=== PATIENT | female | born 1975 | race Caucasian/White ===

== ENCOUNTER → 2016-09-03 | Outpatient (CLI) | payer BC | END | disposition home or self-care (01) | LOC: C.PAPS 12:48 | PROVIDERS: ATTEND Obstetrics & Gynecology | DX: Z01.419 Encounter for gynecological examination (general) (routine) without abnormal findings (principal) ==

== ENCOUNTER → 2017-07-03 | Outpatient (CLI) | payer OTHER ==
--- NOTE | 2017-07-03 09:28 | DIAGNOSTIC IMAGING REPORT ---
L FOOT MIN 3 VIEWS ROUTINE CLINICAL HISTORY: LEFT FOOT PAIN COMPARISON: None. DISCUSSION: The bony mineralization appears normal. No fractures or dislocations are visualized. There are no erosive or destructive changes. IMPRESSION: No significant bony abnormalities identified Electronically signed by: Chris Moss M.D. 07/03/2017 9:26 AM Dictated Date/Time: 07/03/2017 9:26 AM
== END | disposition home or self-care (01) ==
LOC: C.RAD1850 09:19
PROVIDERS: ATTEND Family Medicine
DX: M79.672 Pain in left foot (principal)

== ENCOUNTER 2024-11-03 12:31 | Observation (INO) ==
--- NOTE | 2024-11-03 13:18 | XRay Report ---
XR chest 1V not portable CLINICAL HISTORY: Chest pain, nonspecific COMPARISON STUDY: 02/09/2024 FINDINGS: Heart size and pulmonary vasculature are normal. No consolidation or pleural effusion. No p neumothorax. IMPRESSION: No acute findings. ACT 112: Negative or not required by law. Electronically signed by: Brody De León M.D. 11/03/2024 1:17 PM
[2024-11-03 13:19] LABS: Anion Gap 13 (3-11); Bilirubin,Total 0.3 mg/dl (0.2-1.0); Calcium 9.6 mg/dl (8.6-10.3); Carbon Dioxide 23 mmol/L (21-32); Chloride 103 mmol/L (98-107); Potassium 3.5 mmol/L (3.5-5.1); Sodium 139 mmol/L (136-145)
[2024-11-03 13:25] LABS: Alanine Aminotransferase 13 U/L (7-52); Albumin Globulin Ratio 1.7 (0.9-2); Alkaline Phosphatase 46 U/L (34-104); Blood Urea Nitrogen 18 mg/dl (6-23); Creatinine Clr Calc Pharmacy 67.8 ml/min; Globulin 2.7 gm/dl (2.5-4.0); Glucose 95 mg/dl (70-99(Fasting)); Total Protein 7.2 gm/dl (6.0-8.3)
--- NOTE | 2024-11-03 14:12 | Emergency Department Note ---
History of Present Illness General Chief complaint: Chest Pain Stated complaint: CHEST PAIN Time Seen by Provider: 11/03/24 14:12 History of Present Illness Maximum Pain Intensity: 7 This is a 49-year-old female that presents to the emergency department via private vehicle with complaints of "chest pain, nausea". The patient states that yesterday she began with central chest pain that was present when she ate or drank any food/fluid. However today notes it is worse even at rest. She rates the pain as a 5 or 6/10. This is in the central chest area. She describes as a pressure or heaviness. She notes associated nausea but no vomiting. No cough. No fevers or chills. No history of VA or PE. The patient does not history of aneurysm in the brain about 5 years ago but that was repaired. Current pain 7/10. No headache at this time. The pain in the chest does not radiate to the back or into the arms or neck. Home Medications Medication Instructions Recorded Confirmed Type valsartan 160 1 tab PO DAILY 05/14/24 11/03/24 History mg-hydrochlorothiazide 12.5 mg tablet loratadine 10 mg tablet (Claritin) 10 mg PO DAILY PRN Allergy Symptoms 11/03/24 11/03/24 History Allergies Allergy/AdvReac Type Severity Reaction Status Date / Time Penicillins Allergy Mild AMOXICILLIN Verified 11/03/24 15:54 - RASH sulfamethoxazole Allergy Mild Unknown Verified 11/03/24 15:54 Sulfa (Sulfonamide AdvReac Intermediate NAUSEA Verified 11/03/24 15:54 Antibiotics) Past Med/Surg History Problem List (Updated 11/03/24 @ 18:14 by Faisal March PA-C) Atypical chest pain (Acute) Perimenopause HTN (hypertension) (Chronic) Medical History HTN (hypertension) Brain aneurysm Surgical History H/O shoulder surgery mass removed. Hx of tonsillectomy H/O oral surgery H/O brain surgery Family History (Updated 05/14/24 @ 09:30 by Purnima Allen MD, FACOG) Aunt Breast cancer maternal Mother Hypertension Diabetes Stroke Heart disease Kidney disease Father Congenital heart disease Denies family history of Ovarian cancer Colorectal cancer Social History Smoking Status: Never smoker Do You Dip or Chew Tobacco: No; Preferred Language: Danish Feels Safe at Home: Yes Review of Systems A total of 10 systems reviewed and were otherwise negative Physical Exam Vital Signs Vital Signs - 24 hr 11/03/24 12:33 11/03/24 14:25 11/03/24 15:09 Temperature 36.4 C L Temperature Source Temporal Artery Scan Pulse Rate 87 64 Pulse Rate [Apical] Respiratory Rate 18 Blood Pressure 155/94 H Blood Pressure Mean 114 Pulse Oximetry 100 100 Oxygen Delivery Method Room Air Room Air Sepsis New/Unexplained Change in Mental Status No Sepsis Action Taken by Nursing No Action Required 11/03/24 15:09 11/03/24 15:10 Temperature Temperature Source Pulse Rate Pulse Rate [Apical] 62 Respiratory Rate 15 Blood Pressure Blood Pressure Mean Pulse Oximetry 100 100 Oxygen Delivery Method Room Air Room Air Sepsis New/Unexplained Change in Mental Status Sepsis Action Taken by Nursing VITAL SIGNS - Vital signs and nursing notes were reviewed. Stable and afebrile. GENERAL -49-year-old female appearing her stated age who is in no acute distress. Communicates well with provider and answers questions appropriately. SKIN - Without rashes. No meningeal or petechial rash. HEAD - NC/AT. EYES - PERRL with EOMI bilaterally. Sclera anicteric. EARS - No deformities of external structures noted on gross examination bilaterally. NOSE - Midline and without cyanosis. No epistaxis or purulent drainage noted. MOUTH/OROPHARYNX - Without perioral cyanosis. NECK - Neck with FROM. No nuchal rigidity. LUNGS - CTA CARDIAC - RRR ABDOMEN - Abdominal contour normal without pulsations or visible masses. BS normoactive all four quadrants. No tenderness, palpable masses, hepatosplenomegaly, or ascites noted. EXTREMITIES - No clubbing or peripheral cyanosis. +5/5 strength noted in UE/LE bilaterally. NEUROLOGIC - Cranial nerves II through XII grossly intact. PSYCH -alert, oriented and pleasant on exam Course Administered Medications Discontinued Medications Al Hydrox/Mg Hydrox/Simethicone (Aluminum/Magnesium Susp 30 Ml Udc) 15 ml PO NOW STA Stop: 11/03/24 14:29 Last Admin: 11/03/24 15:10 Dose: 15 ml Documented By: ML Famotidine (Pepcid 20mg Iv Push) 20 mg in 5 mls @ 2.5 mls/min IV NOW STA Stop: 11/03/24 14:29 Last Admin: 11/03/24 15:10 Dose: 2.5 mls/min Documented By: SHIVA Ioversol (Optiray 320 125ml) 115 ml IV ONCE ONE Stop: 11/03/24 14:52 Last Admin: 11/03/24 14:51 Dose: 115 ml Documented By: DAYANA Morphine Sulfate (Morphine Sulfate 2 Mg/Ml Carp) 2 mg IV NOW STA Stop: 11/03/24 15:52 Last Admin: 11/03/24 15:57 Dose: 2 mg Documented By: TRENT Ondansetron HCl (Ondansetron Inj 2 Mg/Ml 2 Ml Vial) 4 mg IV NOW STA Stop: 11/03/24 15:52 Last Admin: 11/03/24 15:57 Dose: 4 mg Documented By: TRENT Medical Decision Making Laboratory Data 11/03/24 14:35 11/03/24 12:53 Lab Results 11/03/24 11/03/24 11/03/24 Range/Units 12:53 14:35 14:39 WBC 17.66 H (4.8-10.8) K/ul RBC 4.54 (4.20-5.40) M/uL Hgb 13.8 (12.0-16.0) g/dl Hct 40.5 (37.0-47.0) % MCV 89.2 (80.0-100.0) fL MCH 30.4 (25.0-34.0) pg MCHC 34.1 (32.0-36.0) g/dL RDW Std Deviation 42.2 (36.4-46.3) fL RDW Coeff of Hiren 13.0 (11.5-14.5) % Plt Count 426 H (130-400) K/uL MPV 9.9 (9.4-12.4) fL Immature Gran % (Auto) 0.5 % Neut % (Auto) 83.5 % Lymph % (Auto) 9.6 % Alcorn % (Auto) 6.0 % Eos % (Auto) 0.1 % Baso % (Auto) 0.3 % Neut # (Auto) 14.75 H (1.40-6.50) K/uL Lymph # (Auto) 1.69 (1.20-3.40) K/uL Alcorn # (Auto) 1.06 H (0.11-0.59) K/uL Eos # (Auto) 0.02 (0.00-0.50) K/uL Baso # (Auto) 0.06 (0.00-0.20) K/uL Immature Gran # (Auto) 0.08 (0.01-0.20) K/uL PT 11.0 (9.0-12.0) Seconds INR 1.0 (0.9-1.1) APTT 31 (21-31) Seconds PTT Ratio 1.2 Sodium 139 (136-145) mmol/L Potassium 3.5 (3.5-5.1) mmol/L Chloride 103 (98-107) mmol/L Carbon Dioxide 23 (21-32) mmol/L Anion Gap 13 H (3-11) BUN 18 (6-23) mg/dl Creatinine 0.95 (0.6-1.2) mg/dl Est Cr Clr Drug Dosing 67.8 ml/min eGFR 72.99 BUN/Creatinine Ratio 18.9 (10-20) Glucose 95 (70-99(Fasting)) mg/dl Calcium 9.6 (8.6-10.3) mg/dl Total Bilirubin 0.3 (0.2-1.0) mg/dl AST 16 (13-39) U/L ALT 13 (7-52) U/L Alkaline Phosphatase 46 (34-104) U/L Troponin I High Sens < 2.3 2.6 (0-14) pg/ml Total Protein 7.2 (6.0-8.3) gm/dl Albumin 4.5 (3.4-5.0) gm/dl Globulin 2.7 (2.5-4.0) gm/dl Albumin/Globulin Ratio 1.7 (0.9-2) Procalcitonin < 0.02 (0-0.5) ng/ml Lyme Disease Screen Negative (Negative) Imaging Data Radiologist's Impression: Chest X-Ray 11/03/24 12:37 XR chest 1V not portable CLINICAL HISTORY: Chest pain, nonspecific COMPARISON STUDY: 02/09/2024 FINDINGS: Heart size and pulmonary vasculature are normal. No consolidation or pleural effusion. No pneumothorax. IMPRESSION: No acute findings. ACT 112: Negative or not required by law. Electronically signed by: Brody De León M.D. 11/03/2024 1:17 PM Chest CTA 11/03/24 14:28 CT angio chest PE protocol CT DOSE: 437.52 mGy.cm HISTORY: 49 years-old Female with central chest pain/pressure. Acute chest pain TECHNIQUE: Multiple CTA images of the chest were obtained after the intravenous administration of 115 ml Optiray. Coronal and sagittal MIPS were obtained from the axial data set and were submitted for review. All measurements were obtained according to NASCET criteria. A dose lowering technique was utilized adhering to the principles of ALARA. COMPARISON: Chest radiograph of same day FINDINGS: CTA: The heart is normal in size. Trace pericardial effusion. Mild coronary artery calcifications. No thoracic aortic aneurysm or dissection. No pulmonary emboli are seen. CT CHEST: No dominant thyroid nodule is seen. No pathologically adenopathy by CT size criteria. Trace pleural effusions. No pneumothorax, airspace consolidation or pulmonary edema. Tiny area of subsegmental subpleural tree-in-bud nodules of the left lower lobe on image 49 series 4 are likely benign. 2 cm thin-walled subpleural cyst of the anterior segment right upper lobe. 4 mm fissural nodule in the right middle lobe on image 58, likely a benign lymph node. A calcified granuloma of left lower lobe. No acute upper abdominal abnormality identified. There are a few nonspecific subcentimeter hypodensities of the liver measuring up to 9 mm which are incompletely characterized. The osseous structures appear intact. IMPRESSION: 1. No pulmonary emboli. 2. Trace pleural and pericardial effusions. 3. No airspace consolidation typical for pneumonia. ACT 112: Negative or not required by law. The above report was generated using voice recognition software. It may contain grammatical, syntax or spelling errors. Electronically signed by: Bobo Thorne M.D. 11/03/2024 3:19 PM [facility] Narrative Patient was seen and evaluated as above in room B12a. Review was performed of triage nursing notes and vital signs. I did review pertinent previous visits and patient history. After obtaining a thorough history and physical examination the above work up was performed. Patient presents to us today for evaluation of chest pressure/pain. She does appear to be in pain on examination. Vital signs stable. EKG per my interpretation reveals normal sinus rhythm at a rate of 80 bpm. QTc 442. QRS 78. No ST elevation. GI cocktail was ordered as well as Pepcid. No change in symptoms. White count is elevated at 17.66. No anemia. Coags normal. No evidence of kidney or liver failure. Troponin x 2 negative. Chest x-ray as above and was essentially negative. CTA was then performed to further assess the patient's chest pressure/heaviness that has been progressively worsening. No PE. Trace pleural and pericardial effusions. No pneumonia.. I did order IV analgesia and antiemetics with the patient noting ongoing symptoms. Procalcitonin and Lyme testing negative. The patient has had no improvement of symptoms with a GI cocktail or IV Pepcid. Although this does not exclude potential for GI etiology, noting the continued chest heaviness/pressure at this time I do believe that further evaluation and management in inpatient setting is warranted. Case discussed with the hospitalist service. Please refer to further documentation regarding her stay. GCS: 15 In the evaluation and treatment of this patient the following differential diagnoses were entertained: VA, PE, dissection, pericarditis, costochondritis, among others. Impression & Plan Atypical chest pain Discharge Plan Visit Data Chief Complaint: Chest Pain Stated Complaint: CHEST PAIN ED Provider: Venkatesh Borrego ED Midlevel Provider: Faisal March Discharge Problem: Atypical chest pain Patient Disposition: Admitted As Inpatient Condition: Good Forms Stand Alone Forms: [facility] Prescriptions Prescriptions: No Action valsartan-hydrochlorothiazide 160-12.5 mg tablet 1 tab PO DAILY loratadine [Claritin] 10 mg Tablet 10 mg PO DAILY PRN (Reason: Allergy Symptoms) Referrals Referrals: Michel Radford MD [Resident] -
[2024-11-03] MEDS: OPTIRAY 320 125ml IV ONE (14:51)
[2024-11-03 14:56] LABS: Hematocrit (blood only) 40.5 % (37.0-47.0); Hemoglobin 13.8 g/dl (12.0-16.0); Immature Granulocytes # (auto) 0.08 K/uL (0.01-0.20); Immature Granulocytes % (auto) 0.5 %; Mean Corpuscular Hemoglobin 30.4 pg (25.0-34.0); Mean Corpuscular Volume 89.2 fL (80.0-100.0); Platelet Count 426 K/uL (130-400); RDW Standard Deviation 42.2 fL (36.4-46.3); Red Blood Count 4.54 M/uL (4.20-5.40); White Blood Count 17.66 K/ul (4.8-10.8)
[2024-11-03] MEDS: ALUMINUM/MAGNESIUM SUSP 30 ML UDC PO STA (15:10)
[2024-11-03] MEDS: FAMOTIDINE 20MG IV PUSH 20 MG/5 ML SYR IV STA (15:10)
--- NOTE | 2024-11-03 15:20 | CT Scan Report ---
CT angio chest PE protocol CT DOSE: 437.52 mGy.cm HISTORY: 49 years-old Female with central chest pain/pressure. Acute chest pain TECHNIQUE: Multiple CTA images of the chest were obtained after the intravenous administration of 115 ml Optiray. Coronal and sagittal MIPS were obtained from the axial data set and were submitted for review. All measurements were obtained according to NASCET criteria. A dose lowering technique was u tilized adhering to the principles of ALARA. COMPARISON: Chest radiograph of same day FINDINGS: CTA: The heart is normal in size. Trace pericardial effusion. Mild coronary artery calcifications. No thor acic aortic aneurysm or dissection. No pulmonary emboli are seen. CT CHEST: No dominant thyroid nodule is seen. No pathologically adenopathy by CT size criteria. Trace pleural effusions. No pneumothorax, airspace consolidation or pulmonary edema. Tiny area of subsegmental subp leural tree-in-bud nodules of the left lower lobe on image 49 series 4 are likely benign. 2 cm thin-w alled subpleural cyst of the anterior segment right upper lobe. 4 mm fissural nodule in the right mid dle lobe on image 58, likely a benign lymph node. A calcified granuloma of left lower lobe. No acute upper abdominal abnormality identified. There are a few nonspecific subcentimeter hypodensit ies of the liver measuring up to 9 mm which are incompletely characterized. The osseous structures ap pear intact. IMPRESSION: 1. No pulmonary emboli. 2. Trace pleural and pericardial effusions. 3. No airspace consolidation typical for pneumonia. ACT 112: Negative or not required by law. The above report was generated using voice recognition software. It may contain grammatical, syntax o r spelling errors. Electronically signed by: Bobo Thorne M.D. 11/03/2024 3:19 PM
[2024-11-03 15:33] LABS: INR 1.0 (0.9-1.1); Partial Thromboplastin Time 31 Seconds (21-31); Prothrombin Time 11.0 Seconds (9.0-12.0)
--- NOTE | 2024-11-03 15:40 | Electrocardiogram Report ---
Test Reason : Blood Pressure : */* mmHG Vent. Rate : 80 BPM Atrial Rate : 80 BPM P-R Int : 134 ms QRS Dur : 78 ms QT Int : 384 ms P-R-T Axes : 47 0 25 degrees QTcB Int : 442 ms Normal sinus rhythm Nonspecific ST abnormality Abnormal ECG When compared with ECG of 09-Feb-2024 16:38, No significant change was found Confirmed by Chito Becker ([id number]) on 11/03/2024 3:40:07 PM Referred By: REFERRED SELF Confirmed By: Chito Becker
[2024-11-03] MEDS: ONDANSETRON INJ 2 MG/ML 2 ML VIAL IV STA (15:57)
[2024-11-03] MEDS: MoRPHine SULFATE 2 MG/ML CARP IV STA (15:57)
[2024-11-03 16:54] LABS: Procalcitonin < 0.02 ng/ml (0-0.5)
[2024-11-03 16:56] LABS: Lyme Screen Rflx Confirmation Negative (Negative)
--- NOTE | 2024-11-03 17:13 | History & Physical Report ---
Date of Service November 03, 2024 Assessment & Plan (1) Atypical chest pain: Plan: Observation with telemetry. Serial EKGs. Serial troponin. Cardiac echo to evaluate for regional wall motion abnormalities. Possible esophageal etiology. Protonix and Carafate suspension ordered (2) HTN (hypertension): Plan: Stable. Continue losartan HCT Plan Hopeful discharge to home within the next day or 2 if cardiac workup is negative. History of Present Illness Chief Complaint: Chest discomfort at rest Primary Care Provider: Melvin Bhatia, DO 49-year-old white female who developed chest discomfort at rest which started yesterday when she was eating. She denies symptoms of dysphagia but she had some odynophagia. She describes her chest pain as sharp and nonradiating and it caused her to have some difficulty taking a deep breath but did not radiate to the neck or to the arms and was not associated with diaphoresis. Her symptoms became steady today, again at rest, and she came to the ED for evaluation. EKG reveals no acute changes. Initial troponin normal. Chest x-ray unremarkable. Chest CTA negative for PE. No significant response to GI cocktail. She is placed in observation with telemetry for further evaluation of what appears to be atypical chest pain. She denies feeling palpitations and denies syncope or near syncope Allergies Allergy/AdvReac Type Severity Reaction Status Date / Time Penicillins Allergy Mild AMOXICILLIN Verified 11/03/24 15:54 - RASH sulfamethoxazole Allergy Mild Unknown Verified 11/03/24 15:54 Sulfa (Sulfonamide AdvReac Intermediate NAUSEA Verified 11/03/24 15:54 Antibiotics) Home Medications Medication Instructions Recorded Confirmed Type valsartan 160 1 tab PO DAILY 05/14/24 11/03/24 History mg-hydrochlorothiazide 12.5 mg tablet loratadine 10 mg tablet (Claritin) 10 mg PO DAILY PRN Allergy Symptoms 11/03/24 11/03/24 History Past Med/Surg History Problem List (Updated 11/03/24 @ 17:12 by Ignacio Cordova MD) Atypical chest pain Perimenopause HTN (hypertension) (Chronic) Medical History HTN (hypertension) Brain aneurysm Surgical History H/O shoulder surgery mass removed. Hx of tonsillectomy H/O oral surgery H/O brain surgery Family History (Updated 05/14/24 @ 09:30 by Purnima Allen MD, FACOG) Aunt Breast cancer maternal Mother Hypertension Diabetes Stroke Heart disease Kidney disease Father Congenital heart disease Denies family history of Ovarian cancer Colorectal cancer Social History Smoking Status: Never smoker Do You Dip or Chew Tobacco: No; Preferred Language: Ugandan Feels Safe at Home: Yes Review of Systems 2 Review of Systems: Constitutionalno fever or chills ENTno blurred vision, no double vision, no epistaxis, no sore throat Respiratoryno cough, no wheezing, no shortness of breath Cardiacno palpitations, no syncope. Chest discomfort described above John nausea, vomiting, diarrhea, melena, hematochezia GUno urinary retention, no urinary incontinence, no dysuria, no hematuria Musculoskeletalno joint pain, no muscle tenderness Skinno bruising, no rashes, no pruritus Neurono isolated weakness, no paresthesia, no weakness Psychno depression, no anxiety Physical Exam 2 Physical Exam: General-alert and oriented x3, no fever, no chills HEENT-head atraumatic and normocephalic, pupils equal and reactive to light, extraocular muscles intact Neck-no lymphadenopathy or thyromegaly, trachea midline Chest-clear to auscultation. No rales, wheezing or rhonchi. Tenderness to palpation over the sternum Cardiac-regular rate and rhythm, normal S1 and S2 Abdomen-normal bowel sounds, no hepatosplenomegaly Extremities-no cyanosis, clubbing, or edema Neuro-cranial nerves II through XII intact, motor and sensory function within normal limits, strength symmetrical, no focal deficits Psych-normal affect, normal mood Results & Data Results & Data Vital Signs (Past 12 Hours) Vital Signs Temp Pulse Pulse Resp BP Pulse Ox O2 Del Method 11/03/24 15:10 100 Room Air 11/03/24 15:09 62 15 100 Room Air 11/03/24 15:09 100 Room Air 11/03/24 14:25 64 11/03/24 12:33 36.4 C L 87 18 155/94 H 100 Room Air Laboratory Results 11/03/24 14:35 11/03/24 12:53 Code Status & VTE Plan Code Status Full code PG Care Time/CCT Total # of Minutes Spent Total Time Spent with Patient: Total time spent is greater than 50% in coordination of care (as documented) at patient's floor/unit and/or counseling patient: Coding Level of Care Code 09042 INT INP/OBS CARE 3/75MIN Diagnoses Atypical chest pain R07.89 HTN (hypertension) I10 Hypertension type: unspecified (2) HTN (hypertension) Hypertension type: unspecified Qualified Code(s): I10 - Essential (primary) hypertension
[2024-11-03] MEDS ORDERED: ACETAMINOPHEN 325 MG TAB PO PRN (19:56)
[2024-11-03] MEDS ORDERED: ONDANSETRON INJ 2 MG/ML 2 ML VIAL IV PRN (19:56)
[2024-11-03] MEDS: SUCRALFATE 1 GM/10 ML UDC PO SCH (20:53)
[2024-11-04] MEDS ORDERED: VALSARTAN/HCTZ 160/12.5MG TAB PO SCH (09:00)
[2024-11-04] MEDS: VALSARTAN 80 MG TAB PO SCH (09:01)
[2024-11-04] MEDS: hydroCHLOROthiazide 25 MG TAB PO SCH (09:01)
--- NOTE | 2024-11-04 11:13 | XCELERA ---
[id number]
--- NOTE | 2024-11-04 12:04 | Discharge Summary ---
Discharge Summary Date of Service November 04, 2024 Principal Dx & Hospital Course #1 = Principal Diagnosis (1) Atypical chest pain: Observation with telemetry. Serial EKGs. Serial troponin. Cardiac echo to evaluate for regional wall motion abnormalities. Possible esophageal etiology since she also has odynophagia which has improved with Protonix and Carafate treatment. Protonix and Carafate will continue at discharge. (2) HTN (hypertension): Stable. Continue losartan HCT Plan Home today, November 04. No evidence of acute coronary syndrome. Continue Protonix and Carafate suspension. She will follow-up with her PCP as soon as possible and if her chest discomfort persists, outpatient stress testing can be arranged hopeful discharge to home within the next day or 2 if cardiac workup is negative. Admission HPI Per Admitting Provider 49-year-old white female who developed chest discomfort at rest which started yesterday when she was eating. She denies symptoms of dysphagia but she had some odynophagia. She describes her chest pain as sharp and nonradiating and it caused her to have some difficulty taking a deep breath but did not radiate to the neck or to the arms and was not associated with diaphoresis. Her symptoms became steady today, again at rest, and she came to the ED for evaluation. EKG reveals no acute changes. Initial troponin normal. Chest x-ray unremarkable. Chest CTA negative for PE. No significant response to GI cocktail. She is placed in observation with telemetry for further evaluation of what appears to be atypical chest pain. She denies feeling palpitations and denies syncope or near syncope Discharge Exam General-alert and oriented x3, no fever, no chills HEENT-head atraumatic and normocephalic, pupils equal and reactive to light, extraocular muscles intact Neck-no lymphadenopathy or thyromegaly, trachea midline Chest-clear to auscultation. No rales, wheezing or rhonchi. Tenderness to palpation over the sternum Cardiac-regular rate and rhythm, normal S1 and S2 Abdomen-normal bowel sounds, no hepatosplenomegaly Extremities-no cyanosis, clubbing, or edema Neuro-cranial nerves II through XII intact, motor and sensory function within normal limits, strength symmetrical, no focal deficits Psych-normal affect, normal mood Discharge Plan Discharge Items Patient Disposition: Home - Self-Care Reason For Visit: ATYPICAL CHEST PAIN Discharge Diagnosis: Atypical chest pain, odynophagia Condition on Discharge: Good Activity: Resume your previous activity Non-emergency contact: Primary Care Provider Call non-emergency contact if: your symptoms worsen Follow-up/Referrals: Melvin Bhatia DO [Primary Care Provider] - Diet: Regular Addtl Attending Provider Instructions: Take Protonix once daily to suppress stomach acid and Carafate suspension 4 times a day to coat the esophagus. Avoid acid containing foods. Follow-up with primary care provider soon as possible for consideration for outpatient stress testing if chest discomfort persists Pending Studies at Discharge: No Stand-Alone Forms: [employer], Smoking Cessation Medications and DC Order Prescriptions: New sucralfate 100 mg/mL Suspension 1 g PO QID Qty: 240 0RF pantoprazole 40 mg Tablet,Delayed Release (Dr/Ec) 40 mg PO DAILY Qty: 30 0RF Continued valsartan-hydrochlorothiazide 160-12.5 mg tablet 1 tab PO DAILY loratadine [Claritin] 10 mg Tablet 10 mg PO DAILY PRN (Reason: Allergy Symptoms) Discharge Orders: Discharge Order (Routine); Ordered 11/04/24 Ordered By: Ignacio Cordova Admission Data Admit Date/Time: 11/03/24 17:04 Attending Provider: Ignacio Cordova Admit Provider: Ignacio Cordova Primary Care Provider: Melvin Bhatia Other Providers: Ignacio Cordova Hospital Stay Data Consultations 11/03/24 16:13 ED Decision to Admit Stat Diagnostic Imagining Performed 11/03/24 14:28 CT angio chest PE protocol Stat Pending Results Patient Have Any Pending Studies at Discharge: No Discharge Instructions Given to Patient (Per Discharging Provider) Take Protonix once daily to suppress stomach acid and Carafate suspension 4 times a day to coat the esophagus. Avoid acid containing foods. Follow-up with primary care provider soon as possible for consideration for outpatient stress testing if chest discomfort persists Total Time Total Time Spent Total Time Spent (In Minutes): 45 minutes Coding Level of Care Code 96578 INP/OBS DISCH >30 MIN Diagnoses Atypical chest pain R07.89 HTN (hypertension) I10 Hypertension type: unspecified
--- NOTE | 2024-11-06 05:38 | Electrocardiogram Report ---
Test Reason : Blood Pressure : */* mmHG Vent. Rate : 62 BPM Atrial Rate : 62 BPM P-R Int : 142 ms QRS Dur : 80 ms QT Int : 434 ms P-R-T Axes : 57 22 28 degrees QTcB Int : 440 ms Normal sinus rhythm with sinus arrhythmia Normal ECG When compared with ECG of 03-Nov-2024 12:39, No significant change was found Confirmed by Alcides Javed ([id number]) on 11/06/2024 5:37:46 AM Referred By: REFERRED SELF Confirmed By: Alcides Javed
== END 2024-11-04 12:23 | disposition home or self-care (01) ==
LOC: SUATTDRO → ED 12:31 → 2N 12:31